=== PATIENT | female | born 1995 | race African-American/Black ===

== ENCOUNTER → 2019-06-06 | Outpatient (CLI) | payer OTHER ==
--- NOTE | 2019-06-06 11:02 | EEG ---
DATE OF SERVICE: 06/06/2019 EEG NUMBER: [id number]. OBJECTIVE: The patient is a 23-year-old female with a post-concussion syndrome and episodes of syncope. She also told the electroencephalogram ocular care technician that she is having some hallucinations. DESCRIPTION: This is a digital study. Electrodes are placed according to the international 10-20 system. Bipolar and referential montages are available. Activation procedures typically include hyperventilation and intermittent photic stimulation. INTERPRETATION: The waking background consists of 9-10 Hz, 50-100 microvolt activity, symmetrically distributed over parietooccipital regions and reactive to eye opening. Hyperventilation and intermittent photic stimulation are noncontributory. Sleep was not achieved. All computer-identified abnormalities are reviewed in detail and none are truly abnormal. IMPRESSION: This electroencephalogram with the patient awake only is within normal limits. There is no focal, paroxysmal, or epileptiform activity. Thank you for letting us help with the patient's care. ANA M SERRA MD DR: MARQUIS/riccardo JOB#: [id number] / [id number]
== END | disposition home or self-care (01) ==
LOC: RT 08:09
PROVIDERS: ATTEND Psychiatry & Neurology Neurology
DX: F07.81 Postconcussional syndrome (principal)
CPT/HCPCS: 95816